=== PATIENT | female | born 1970 | race Caucasian/White ===

== ENCOUNTER 2018-01-18 11:34 | Emergency (ER) | payer OTHER ==
[~2018-01-18] VITALS: Ht 152.4 cm; Wt 48.5 kg
[2018-01-18 12:16] VITALS: BP 143/77
== END 2018-01-18 12:22 | disposition home or self-care (01) ==
LOC: FSED 11:34
DX: R05 Cough (principal); J01.00 Acute maxillary sinusitis, unspecified; R30.0 Dysuria; R10.9 Unspecified abdominal pain; N30.90 Cystitis, unspecified without hematuria
CPT/HCPCS: 81003; 99283